=== PATIENT | female | born 1990 | race American Indian/Alaskan Native ===

== ENCOUNTER 2018-01-07 14:46 | Emergency (ER) | payer OTHER ==
[2018-01-07] MEDS ORDERED: TYLENOL PO ONE (20:52)
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
[2018-01-07 22:05] VITALS: BP 95/61
== END 2018-01-07 22:25 | disposition home or self-care (01) ==
LOC: ED 14:46
DX: S06.9X9A Unspecified intracranial injury with loss of consciousness of unspecified duration, initial encounter (principal); G44.319 Acute post-traumatic headache, not intractable; M54.2 Cervicalgia; N39.498 Other specified urinary incontinence; N64.4 Mastodynia; V87.7XXA Person injured in collision between other specified motor vehicles (traffic), initial encounter; Y93.89 Activity, other specified; Y99.8 Other external cause status; Y92.410 Unspecified street and highway as the place of occurrence of the external cause
CPT/HCPCS: 70450; 72125; 99283